=== PATIENT | female | born 1950 | race Caucasian/White ===

== ENCOUNTER → 2016-09-19 | Outpatient (CLI) | payer BC ==
[~2016-09-19] MED LIST: ACID1TAB7 PO; CHOL4PAC2 PO; DIAZ5TAB4 PO; DIPH1TAB PO; DIPH60LI PO; ENOX40SY4 SQ; HYDR-882 PO; INSU100C SQ-INSULIN; INSU100V13 SQ; INSU100V5 SQ; LIDO5CRE14 TP; LISI1TAB5 PO; LOPE2CAP PO; MAGN64TA9 PO; OCTR100V SQ; OXYC5TAB3 PO; POTA20TA14 PO; PROC10TA PO
== END | disposition home or self-care (01) ==
LOC: RAD 10:05
PROVIDERS: ATTEND Specialist
DX: Z01.810 Encounter for preprocedural cardiovascular examination (principal); Z51.11 Encounter for antineoplastic chemotherapy; Z51.12 Encounter for antineoplastic immunotherapy; C50.812 Malignant neoplasm of overlapping sites of left female breast; C79.51 Secondary malignant neoplasm of bone; C79.31 Secondary malignant neoplasm of brain
CPT/HCPCS: 93005

== ENCOUNTER → 2016-09-26 | Outpatient (CLI) | payer BC ==
[~2016-09-26] MED LIST changes: +OMNIPAQUE 350 MG/ML, 100ML BOTTLE ONE
== END | disposition home or self-care (01) ==
LOC: CFH 13:40
PROVIDERS: ATTEND Specialist
DX: C50.812 Malignant neoplasm of overlapping sites of left female breast (principal); C50.811 Malignant neoplasm of overlapping sites of right female breast; C78.00 Secondary malignant neoplasm of unspecified lung; K57.90 Diverticulosis of intestine, part unspecified, without perforation or abscess without bleeding; R91.8 Other nonspecific abnormal finding of lung field
CPT/HCPCS: 71260; 74177; Q9967

== ENCOUNTER → 2016-09-29 | Outpatient (CLI) | payer BC, MEDICARE ==
[~2016-09-29] MED LIST changes: -OMNIPAQUE 350 MG/ML, 100ML BOTTLE ONE
== END | disposition home or self-care (01) ==
LOC: CFH 10:47
PROVIDERS: ATTEND Specialist
DX: Z13.820 Encounter for screening for osteoporosis (principal); M85.88 Other specified disorders of bone density and structure, other site; C50.812 Malignant neoplasm of overlapping sites of left female breast
CPT/HCPCS: 77080

== ENCOUNTER → 2016-10-11 | Outpatient (CLI) | payer BC ==
[~2016-10-11] MED LIST changes: +GADOBUTROL 7.5 MMOL/7.5 ML PFS ONE
== END | disposition home or self-care (01) ==
LOC: CFH 09:19
PROVIDERS: ATTEND Radiology Radiation Oncology
DX: C79.31 Secondary malignant neoplasm of brain (principal); C79.51 Secondary malignant neoplasm of bone; C50.919 Malignant neoplasm of unspecified site of unspecified female breast
CPT/HCPCS: 70553; A9585

== ENCOUNTER → 2016-10-12 | Outpatient (CLI) | payer BC ==
[~2016-10-12] MED LIST changes: -GADOBUTROL 7.5 MMOL/7.5 ML PFS ONE
== END | disposition home or self-care (01) ==
LOC: ROC 10:16
PROVIDERS: ATTEND Radiology Radiation Oncology
DX: C50.812 Malignant neoplasm of overlapping sites of left female breast (principal); C78.02 Secondary malignant neoplasm of left lung; C78.01 Secondary malignant neoplasm of right lung; C79.51 Secondary malignant neoplasm of bone; C79.31 Secondary malignant neoplasm of brain; Z92.3 Personal history of irradiation
CPT/HCPCS: 99213; G0463

== ENCOUNTER 2016-11-11 15:17 | Emergency (ER) | payer BC ==
[~2016-11-11] VITALS: Ht 162.6 cm; Wt 61.3 kg
[2016-11-11 15:19] VITALS: BP 109/73
[2016-11-11 15:57] LABS: BLOOD UREA NITROGEN 80 mg/dL (7-18)
[2016-11-11] MEDS ORDERED: SODIUM CHLORIDE FLUSH 10ML SYR IVF ONE (16:30)
[2016-11-11] MEDS ORDERED: SODIUM CHLORIDE 0.9% 1,000ML IVBOLUS ONE (16:30)
[2016-11-11] MEDS ORDERED: BACITRACIN ZINC OINT 500U/GM, 0.9 GM ONE (18:01)
== END 2016-11-11 18:05 | disposition home or self-care (01) ==
LOC: ED 17:58
DX: S02.2XXA Fracture of nasal bones, initial encounter for closed fracture (principal); S01.21XA Laceration without foreign body of nose, initial encounter; S09.90XA Unspecified injury of head, initial encounter; E86.0 Dehydration; E87.6 Hypokalemia; E11.9 Type 2 diabetes mellitus without complications; I10 Essential (primary) hypertension; Z90.49 Acquired absence of other specified parts of digestive tract; X58.XXXA Exposure to other specified factors, initial encounter; Y93.89 Activity, other specified; Y99.8 Other external cause status; Y92.410 Unspecified street and highway as the place of occurrence of the external cause
CPT/HCPCS: 36415; 70486; 80048; 82040; 85025; 99285; J7030

== ENCOUNTER → 2016-12-26 | Outpatient (CLI) | payer BC ==
[~2016-12-26] MED LIST changes: +BENZ100C4 PO; +GADOBUTROL 10 MMOL/10 ML PFS ONE; +LEVO500T33 PO; +METF500T4 PO; +TOLT4CAP PO
== END | disposition home or self-care (01) ==
LOC: CFH 10:45
PROVIDERS: ATTEND Radiology Radiation Oncology
DX: C79.31 Secondary malignant neoplasm of brain (principal); C79.51 Secondary malignant neoplasm of bone; C78.00 Secondary malignant neoplasm of unspecified lung; C50.919 Malignant neoplasm of unspecified site of unspecified female breast; E11.9 Type 2 diabetes mellitus without complications; G31.9 Degenerative disease of nervous system, unspecified
CPT/HCPCS: 70553; A9585

== ENCOUNTER → 2017-01-18 | Outpatient (CLI) | payer BC ==
[~2017-01-18] MED LIST changes: -GADOBUTROL 10 MMOL/10 ML PFS ONE
== END | disposition home or self-care (01) ==
LOC: ROC 10:45
PROVIDERS: ATTEND Radiology Radiation Oncology
DX: C79.31 Secondary malignant neoplasm of brain (principal); C50.811 Malignant neoplasm of overlapping sites of right female breast; R91.8 Other nonspecific abnormal finding of lung field; Z92.3 Personal history of irradiation; Z87.311 Personal history of (healed) other pathological fracture
CPT/HCPCS: 99213; G0463

== ENCOUNTER 2017-02-03 08:11 | Day surgery (SDC) | payer BC ==
[~2017-02-03] VITALS: Ht 162.6 cm; Wt 83.6 kg
[2017-02-03 09:28] VITALS: BP 133/85
[2017-02-03] MEDS ORDERED: FLUMAZENIL 0.1 MG/1 ML, 5ML ONE (10:10)
[2017-02-03] MEDS ORDERED: FENTANYL PF 100 MCG/2ML ONE (10:10)
[2017-02-03] MEDS ORDERED: MIDAZOLAM 1 MG/ML, 5ML ONE (10:10)
[2017-02-03] MEDS ORDERED: NALOXONE 1 MG/ML, 2ML ONE (10:10)
== END 2017-02-03 14:45 | disposition home or self-care (01) ==
LOC: OUT 08:11
PROVIDERS: ATTEND Specialist
DX: C50.812 Malignant neoplasm of overlapping sites of left female breast (principal); E11.9 Type 2 diabetes mellitus without complications; D64.9 Anemia, unspecified; D70.9 Neutropenia, unspecified; I10 Essential (primary) hypertension; Z85.118 Personal history of other malignant neoplasm of bronchus and lung
CPT/HCPCS: 32405; 71010; 77012; 88305; 99156; J2250; J3010; 99157; J2310

== ENCOUNTER → 2017-05-10 | Outpatient (CLI) | payer BC ==
[~2017-05-10] MED LIST changes: +BENZ-17 PO; -BENZ100C4 PO; -LEVO500T33 PO; +LEVO500T47 PO
== END | disposition home or self-care (01) ==
LOC: ROC 11:14
PROVIDERS: ATTEND Radiology Radiation Oncology
DX: C79.51 Secondary malignant neoplasm of bone (principal); C79.31 Secondary malignant neoplasm of brain; C50.919 Malignant neoplasm of unspecified site of unspecified female breast
CPT/HCPCS: 99213; G0463

== ENCOUNTER → 2017-05-19 | Outpatient (CLI) | payer BC | END | disposition home or self-care (01) | LOC: RAD 13:29 | PROVIDERS: ATTEND Specialist | DX: M79.604 Pain in right leg (principal); I82.401 Acute embolism and thrombosis of unspecified deep veins of right lower extremity; C50.812 Malignant neoplasm of overlapping sites of left female breast ==

== ENCOUNTER → 2017-06-23 | Outpatient (CLI) | payer BC | LOC: PETCFH 10:35 | PROVIDERS: ATTEND Specialist | DX: C50.812 Malignant neoplasm of overlapping sites of left female breast (principal); C79.31 Secondary malignant neoplasm of brain; C78.00 Secondary malignant neoplasm of unspecified lung | CPT/HCPCS: 78306; A9503 ==

== ENCOUNTER → 2017-06-23 | Outpatient (CLI) | payer BC ==
[~2017-06-23] MED LIST changes: +OMNIPAQUE 350 MG/ML, 100ML BOTTLE ONE
== END ==
LOC: CFH 10:33
PROVIDERS: ATTEND Specialist
DX: C50.911 Malignant neoplasm of unspecified site of right female breast (principal); R91.8 Other nonspecific abnormal finding of lung field; C79.51 Secondary malignant neoplasm of bone; C79.31 Secondary malignant neoplasm of brain; C78.00 Secondary malignant neoplasm of unspecified lung
CPT/HCPCS: 71260; 74177; Q9967

== ENCOUNTER → 2017-08-03 | Outpatient (CLI) | payer BC ==
[~2017-08-03] MED LIST changes: +GADOBUTROL 7.5 MMOL/7.5 ML PFS ONE; -OMNIPAQUE 350 MG/ML, 100ML BOTTLE ONE
== END ==
LOC: CFH 09:45
PROVIDERS: ATTEND Radiology Radiation Oncology
DX: C50.919 Malignant neoplasm of unspecified site of unspecified female breast (principal); C79.31 Secondary malignant neoplasm of brain; I10 Essential (primary) hypertension
CPT/HCPCS: 70553; A9585

== ENCOUNTER → 2017-09-01 | Outpatient (CLI) | payer BC ==
[~2017-09-01] MED LIST changes: +GADOBUTROL 10 MMOL/10 ML PFS ONE; -GADOBUTROL 7.5 MMOL/7.5 ML PFS ONE
== END | disposition home or self-care (01) ==
LOC: CFH 10:24
PROVIDERS: ATTEND Radiology Radiation Oncology
DX: G93.89 Other specified disorders of brain (principal); C79.31 Secondary malignant neoplasm of brain; C80.1 Malignant (primary) neoplasm, unspecified
CPT/HCPCS: 70553; A9585

== ENCOUNTER → 2017-11-17 | Outpatient (CLI) | payer BC ==
[~2017-11-17] MED LIST changes: -GADOBUTROL 10 MMOL/10 ML PFS ONE; -MAGN64TA9 PO; +MAGNESIUM DR64 MG PO; -METF500T4 PO; +METF500T5 PO; -PROC10TA PO; +PROC10TA2 PO
== END ==
LOC: ROC 07:52
PROVIDERS: ATTEND Radiology Radiation Oncology
DX: Z02.9 Encounter for administrative examinations, unspecified (principal)

== ENCOUNTER → 2017-11-17 | Outpatient (CLI) | payer BC ==
[~2017-11-17] MED LIST changes: +GADOBUTROL 10 MMOL/10 ML PFS ONE; +METF500T4 PO; -METF500T5 PO; +PROC10TA PO; -PROC10TA2 PO
== END | disposition home or self-care (01) ==
LOC: CFH 09:23
PROVIDERS: ATTEND Radiology Radiation Oncology
DX: G93.89 Other specified disorders of brain (principal); C79.31 Secondary malignant neoplasm of brain; C50.919 Malignant neoplasm of unspecified site of unspecified female breast
CPT/HCPCS: 70553; A9585

== ENCOUNTER → 2017-11-22 | Outpatient (CLI) | payer BC ==
[~2017-11-22] MED LIST changes: -GADOBUTROL 10 MMOL/10 ML PFS ONE; +OMNIPAQUE 350 MG/ML, 100ML BOTTLE ONE
== END | disposition home or self-care (01) ==
LOC: RAD 13:19
PROVIDERS: ATTEND Radiology Radiation Oncology
DX: S72.141A Displaced intertrochanteric fracture of right femur, initial encounter for closed fracture (principal); R59.1 Generalized enlarged lymph nodes; R91.8 Other nonspecific abnormal finding of lung field; C50.919 Malignant neoplasm of unspecified site of unspecified female breast; X58.XXXA Exposure to other specified factors, initial encounter; Y93.89 Activity, other specified; Y92.89 Other specified places as the place of occurrence of the external cause; Y99.8 Other external cause status
CPT/HCPCS: 71260; 74177; J1642; Q9967

== ENCOUNTER → 2017-11-22 | Outpatient (CLI) | payer BC ==
[~2017-11-22] MED LIST changes: -OMNIPAQUE 350 MG/ML, 100ML BOTTLE ONE
== END ==
LOC: ROC 07:35
PROVIDERS: ATTEND Radiology Radiation Oncology
DX: C79.51 Secondary malignant neoplasm of bone (principal); C50.919 Malignant neoplasm of unspecified site of unspecified female breast
CPT/HCPCS: 99213; G0463

== ENCOUNTER → 2017-12-13 | Outpatient (CLI) | payer BC ==
[~2017-12-13] MED LIST changes: -METF500T4 PO; +METF500T5 PO; -PROC10TA PO; +PROC10TA2 PO
== END | disposition home or self-care (01) ==
LOC: RAD 10:22
PROVIDERS: ATTEND Specialist
DX: C50.812 Malignant neoplasm of overlapping sites of left female breast (principal)
CPT/HCPCS: 78306; A9503

== ENCOUNTER → 2018-01-05 | Outpatient (CLI) | payer BC | END | disposition home or self-care (01) | LOC: ROC 08:05 | PROVIDERS: ATTEND Radiology Radiation Oncology | DX: C79.81 Secondary malignant neoplasm of breast (principal) | CPT/HCPCS: 99213; G0463 ==

== ENCOUNTER → 2018-01-17 | Outpatient (CLI) | payer BC ==
[~2018-01-17] MED LIST changes: +GADOBUTROL 10 MMOL/10 ML PFS ONE
== END | disposition home or self-care (01) ==
LOC: CFH 14:44
PROVIDERS: ATTEND Radiology Radiation Oncology
DX: C79.31 Secondary malignant neoplasm of brain (principal); C79.51 Secondary malignant neoplasm of bone; C50.812 Malignant neoplasm of overlapping sites of left female breast; C50.811 Malignant neoplasm of overlapping sites of right female breast; I10 Essential (primary) hypertension; E11.9 Type 2 diabetes mellitus without complications; Z79.4 Long term (current) use of insulin
CPT/HCPCS: 70553; A9585